=== PATIENT | female | born 1990 | race Asian ===

== ENCOUNTER 2018-01-30 13:29 | Emergency (ER) | payer OTHER ==
[2018-01-30 13:40] VITALS: TEMP 98.3; BMI 16.4
--- NOTE | 2018-01-30 13:56 | PDOC ---
History of Present Illness - History of Present Illness Initial Comments: 01/30/18 13:55 Denies F/C, N/V, CP, SOB, abdominal pain, diarrhea, constipation, urinary complaints, weakness, lightheadedness, sensory changes. PMHx: as noted above ROS: as noted above SHx: <Zenon Brannon - Last Filed: 01/30/18 13:54> <Sirisha Macedo - Last Filed: 01/30/18 15:38> - General Chief Complaint: Pain Stated Complaint: PAIN Time Seen by Provider: 01/30/18 13:49 Past History - Past Medical History COPD: No - Suicide/Smoking/Psychosocial Hx Smoking History: Never smoked <Zenon Brannon - Last Filed: 01/30/18 13:54> <Sirisha Macedo - Last Filed: 01/30/18 15:38> - Past Medical History Allergies/Adverse Reactions: Allergies Allergy/AdvReac Type Severity Reaction Status Date / Time No Known Allergies Allergy Verified 01/30/18 13:40 Review of Systems - Review of Systems Comments:: 01/30/18 13:55 GENERAL/CONSTITUTIONAL: No fever or chills. No weakness. HEAD, EYES, EARS, NOSE AND THROAT: No change in vision. No ear pain or discharge. No sore throat. CARDIOVASCULAR: No chest pain or shortness of breath RESPIRATORY: No cough, wheezing, or hemoptysis. GASTROINTESTINAL: No nausea, vomiting, diarrhea or constipation. GENITOURINARY: No dysuria, frequency, or change in urination. MUSCULOSKELETAL: No joint or muscle swelling or pain. No neck or back pain. SKIN: No rash NEUROLOGIC: No headache, vertigo, loss of consciousness, or change in strength/ sensation. ENDOCRINE: No increased thirst. No abnormal weight change HEMATOLOGIC/LYMPHATIC: No anemia, easy bleeding, or history of blood clots. ALLERGIC/IMMUNOLOGIC: No hives or skin allergy. <Zenon Brannon - Last Filed: 01/30/18 13:54> *Physical Exam - Vital Signs Last Vital Signs Temp Pulse Resp BP Pulse Ox 98.3 F 99 H 18 122/75 99 01/30/18 13:37 01/30/18 13:37 01/30/18 13:37 01/30/18 13:37 01/30/18 13:37 - Physical Exam Comments: 01/30/18 13:55 GENERAL: Awake, alert, and fully oriented, in no acute distress HEAD: No signs of trauma, normocephalic, atraumatic EYES: PERRLA, EOMI, sclera anicteric, conjunctiva clear ENT: Auricles normal inspection, hearing grossly normal, nares patent, oropharynx clear without exudates. Moist mucosa NECK: Normal ROM, supple, no lymphadenopathy, JVD, or masses LUNGS: No distress, speaks full sentences, clear to auscultation bilaterally HEART: Regular rate and rhythm, normal S1 and S2, no murmurs, rubs or gallops, peripheral pulses normal and equal bilaterally. ABDOMEN: Soft, nontender, normoactive bowel sounds. No guarding, no rebound. No masses EXTREMITIES : Normal inspection, Normal range of motion, no edema. No clubbing or cyanosis. NEUROLOGICAL: Cranial nerves II through XII grossly intact. Normal speech, normal gait, no focal sensorimotor deficits SKIN: Warm, Dry, normal turgor, no rashes or lesions noted <Zenon Brannon - Last Filed: 01/30/18 13:54> - Vital Signs Last Vital Signs Temp Pulse Resp BP Pulse Ox 98.3 F 99 H 18 122/75 99 01/30/18 13:37 01/30/18 13:37 01/30/18 13:37 01/30/18 13:37 01/30/18 13:37 - Physical Exam General Appearance: Yes: Appropriately Dressed Respiratory/Chest: positive: Lungs Clear, Normal Breath Sounds Cardiovascular: positive: Regular Rhythm, Regular Rate, S1, S2 Female Pelvic Exam: positive: normal external exam, cervical os closed, other ( scant white thick discharge. . rectal nontender no blood. ) Gastrointestinal/Abdominal: positive: Normal Bowel Sounds, Tender (llq suprapubic ttp. no rebound no guarding. ), Flat Musculoskeletal: positive: Normal Inspection. negative: CVA Tenderness Extremity: positive: Normal Capillary Refill, Normal Inspection Integumentary: positive: Normal Color, Dry, Warm Neurologic: positive: Fully Oriented, Alert, Normal Mood/Affect <Sirisha Macedo - Last Filed: 01/30/18 15:38> ED Treatment Course - LABORATORY CBC & Chemistry Diagram: 01/30/18 15:21 01/30/18 15:21 - RADIOLOGY Radiology Studies Ordered: Category Date Time Status TRANSVAGINAL US PREG [US] Stat Ultrasound 01/30/18 14:27 Ordered <Sirisha Macedo - Last Filed: 01/30/18 15:38> Medical Decision Making - Medical Decision Making 01/30/18 14:56 27 yo F at 12 weeks by LMP 10/30/17 here with lower abd cramping. pt is visiting from out of town. one prior , and one miscarriage at 6 weeks. no vaginal bleeding. pain cramping. also c/o nausea, vomiting 2 days ago. unable to take po today due to nausea. on exam awake alert. abd soft mild suprupubic ttp. no rebound no guarding. differential: ab, pain or , dehydration. anemia, uti, ectopic. plan tvus, labs us ivf. Reassess. <Sirisha Macedo - Last Filed: 01/30/18 15:38> *DC/Admit/Observation/Transfer - Attestations Physician Attestion: 01/30/18 13:55 I attest to the information provided in this note. <Zenon Brannon - Last Filed: 01/30/18 13:54> <Sirisha Macedo - Last Filed: 01/30/18 15:38> - Referrals Referrals: Huy Russell MD [Staff Physician] - - Patient Instructions Additional Instructions: Please return to the emergency department with any new or worsening symptoms or concerns. Please follow up with your primary care physician within 72 hours.
[2018-01-30] MEDS ORDERED: SODIUM CHLORIDE 0.9% 1000 ML INFUS.BAG IV ONE (14:28)
[2018-01-30] MEDS ORDERED: METOCLOPRAMIDE HCL INJECTION 10 MG/2 ML VIAL IVPUSH ONE (15:00)
[2018-01-30] MEDS ORDERED: METOCLOPRAMIDE HCL INJECTION 10 MG/2 ML VIAL ONE (15:24)
[2018-01-30 15:29] LABS: BASO % 0.1 % (0-2.0); EOS % 0.8 % (0-4.5); HEMOGLOBIN 11.5 GM/dL (10.7-15.3); LYMPH % 17.1 % (8-40); MCH 28.8 pg (25.7-33.7); MCHC 34.8 g/dl (32.0-36.0); MEAN CELL VOLUME 82.7 fl (80-96); MEAN PLT VOLUME 8.9 fl (7.5-11.1); MONO % 5.9 % (3.8-10.2); NEUT % 76.1 % (42.8-82.8); PLATELET COUNT 255 K/MM3 (134-434); RBC 3.98 M/mm3 (3.60-5.2); RDW 14.7 % (11.6-15.6); WHITE BLOOD COUNT 9.9 K/mm3 (4.0-10.0)
--- NOTE | 2018-01-30 15:38 | PDOC ---
History of Present Illness - General History Source: Patient Exam Limitations: No Limitations - History of Present Illness Initial Comments: 01/30/18 15:39 The patient is a 27 year old female, A1, who is currently 12 weeks (Home test, but not medically verified), with no significant past medical history, who presents to the emergency department complaining of abdominal pain, nausea, vomiting and anal itching for the last couple of days. She describes her abdominal pain as cramping sensation, ranging from mild to moderate, without radiation or modifying factors. She denies any kind of vaginal bleeding but notes some mild discharge. She notes that she had a miscarriage in the past at 6 weeks old. She states that she was unable to eat this morning due to nausea. [employer] Crew Supervisor was used: Myra # [id number] The patient denies chest pain, shortness of breath, headache or dizziness. Denies fever, chills, diarrhea and constipation. Denies dysuria, frequency, urgency and hematuria. LMP: 10/30/2017 Allergies: None Past surgical history: None reported Social History: No alcohol, tobacco or drug use reported <David Nielson - Last Filed: 01/30/18 15:51> - General History Source: Patient Exam Limitations: No Limitations <Sirisha Macedo - Last Filed: 01/30/18 16:54> - General Chief Complaint: Pain Stated Complaint: PAIN Time Seen by Provider: 01/30/18 13:49 Past History <David Nielson - Last Filed: 01/30/18 15:51> - Past Medical History COPD: No - Reproductive History Is Patient Now?: Yes (#): 3 Para: 1 Cervical CA: No Dysfunctional Uterine Bleeding: No Ectopic : No Endometrial CA: No Polycystic Ovaries: No Therapeutic (s) & number: No Tubal Ligation: No Spontaneous : 1 - Suicide/Smoking/Psychosocial Hx Smoking History: Never smoked Information on smoking cessation initiated: No <Sirisha Macedo - Last Filed: 01/30/18 16:54> - Past Medical History Allergies/Adverse Reactions: Allergies Allergy/AdvReac Type Severity Reaction Status Date / Time No Known Allergies Allergy Verified 01/30/18 13:40 Home Medications: Ambulatory Orders Metoclopramide HCl [Reglan] 10 mg PO TIDCM PRN #20 tablet 01/30/18 Review of Systems - Review of Systems Able to Perform ROS?: Yes Comments:: 01/30/18 15:39 GENERAL/CONSTITUTIONAL: No fever or chills. No weakness. HEAD, EYES, EARS, NOSE AND THROAT: No change in vision. No ear pain or discharge. No sore throat. CARDIOVASCULAR: No chest pain or shortness of breath. RESPIRATORY: No cough, wheezing, or hemoptysis. GASTROINTESTINAL: (+) Abdominal pain. No nausea, vomiting, diarrhea or constipation. GENITOURINARY: No dysuria, frequency, or change in urination. MUSCULOSKELETAL: No joint or muscle swelling or pain. No neck or back pain. SKIN: No rash NEUROLOGIC: No headache, vertigo, loss of consciousness, or change in strength/ sensation. ENDOCRINE: No increased thirst. No abnormal weight change. HEMATOLOGIC/LYMPHATIC: No anemia, easy bleeding, or history of blood clots. ALLERGIC/IMMUNOLOGIC: No hives or skin allergy. <David Nielson - Last Filed: 01/30/18 15:51> *Physical Exam - Vital Signs Last Vital Signs Temp Pulse Resp BP Pulse Ox 98.3 F 99 H 18 122/75 99 01/30/18 13:37 01/30/18 13:37 01/30/18 13:37 01/30/18 13:37 01/30/18 13:37 - Physical Exam Comments: 01/30/18 15:39 GENERAL: Awake, alert, and fully oriented, in no acute distress HEAD: No signs of trauma EYES: PERRLA, EOMI, sclera anicteric, conjunctiva clear ENT: Auricles normal inspection, nares patent. Moist mucosa NECK: Normal ROM, supple, no JVD, or masses LUNGS: Breath sounds equal, clear to auscultation bilaterally. No wheezes, and no crackles HEART: Regular rate and rhythm, normal S1 and S2, no murmurs, rubs or gallops ABDOMEN: (+) Mild suprapubic and bilateral lower quadrant tenderness. Soft, normoactive bowel sounds. No guarding, no rebound. No masses EXTREMITIES: Normal range of motion, no edema. No clubbing or cyanosis. No cords, erythema, or tenderness NEUROLOGICAL: Alert and oriented x 3. Moves all extremities. Face is symmetric. SKIN: Warm, Dry, normal turgor, no rashes or lesions noted. PELVIC EXAM: (+) White discharge in vaginal vault. No CMT tenderness, No adnexal tenderness, Ox is closed. <David Nielson - Last Filed: 01/30/18 15:51> - Vital Signs Last Vital Signs Temp Pulse Resp BP Pulse Ox 98.3 F 99 H 18 122/75 99 01/30/18 13:37 01/30/18 13:37 01/30/18 13:37 01/30/18 13:37 01/30/18 13:37 <Sirisha Macedo - Last Filed: 01/30/18 16:54> ED Treatment Course - LABORATORY CBC & Chemistry Diagram: 01/30/18 15:21 01/30/18 15:21 - ADDITIONAL ORDERS Additional order review: 01/30/18 15:21 RBC 3.98 MCV 82.7 MCHC 34.8 RDW 14.7 MPV 8.9 Neutrophils % 76.1 Lymphocytes % 17.1 Monocytes % 5.9 Eosinophils % 0.8 Basophils % 0.1 - Medications Given in the ED: ED Medications Discontinued Medications Generic Name Dose Route Start Last Admin Trade Name Freq PRN Reason Stop Dose Admin Metoclopramide HCl 10 mg 01/30/18 15:00 01/30/18 15:25 Reglan Injection - IVPUSH 01/30/18 15:01 10 mg ONCE ONE Administration Sodium Chloride 1,000 ml 01/30/18 14:28 01/30/18 15:23 Normal Saline - IV 01/30/18 14:29 1,000 ml ONCE ONE Administration <David Nielson - Last Filed: 01/30/18 15:51> - LABORATORY CBC & Chemistry Diagram: 01/30/18 15:21 01/30/18 15:21 - ADDITIONAL ORDERS Additional order review: 01/30/18 15:21 RBC 3.98 MCV 82.7 MCHC 34.8 RDW 14.7 MPV 8.9 Neutrophils % 76.1 Lymphocytes % 17.1 Monocytes % 5.9 Eosinophils % 0.8 Basophils % 0.1 - RADIOLOGY Radiology Studies Ordered: Category Date Time Status TRANSVAGINAL US PREG [US] Stat Ultrasound 01/30/18 14:27 Ordered - Medications Given in the ED: ED Medications Discontinued Medications Generic Name Dose Route Start Last Admin Trade Name Freq PRN Reason Stop Dose Admin Metoclopramide HCl 10 mg 01/30/18 15:00 01/30/18 15:25 Reglan Injection - IVPUSH 01/30/18 15:01 10 mg ONCE ONE Administration Sodium Chloride 1,000 ml 01/30/18 14:28 01/30/18 15:23 Normal Saline - IV 01/30/18 14:29 1,000 ml ONCE ONE Administration <Sirisha Macedo - Last Filed: 01/30/18 16:54> Medical Decision Making - Medical Decision Making 01/30/18 15:38 27 yo F at 12 weeks by LMP 10/30/17 here with lower abd cramping. pt is visiting from out of town. one prior , and one miscarriage at 6 weeks. no vaginal bleeding. pain cramping. also c/o nausea, vomiting 2 days ago. unable to take po today due to nausea. on exam awake alert. abd soft mild suprupubic ttp. no rebound no guarding. differential: ab, pain or , dehydration. anemia, uti, ectopic. plan tvus, labs us ivf. Reassess. 01/30/18 16:50 pt w 12 week . labs unremarkable. given ob/ telecom billing analyst fu. <Sirisha Macedo - Last Filed: 01/30/18 16:54> *DC/Admit/Observation/Transfer - Attestations Scribe Attestion: 01/30/18 15:41 Documentation prepared by David Nielson, acting as medical driver for Sirisha Macedo MD <David Nielson - Last Filed: 01/30/18 15:51> - Discharge Dispostion Decision to Admit order: No <Sirisha Macedo - Last Filed: 01/30/18 16:54> Diagnosis at time of Disposition: - Discharge Dispostion Disposition: HOME Condition at time of disposition: Improved - Prescriptions Prescriptions: Metoclopramide HCl [Reglan] 10 mg PO TIDCM PRN #20 tablet PRN Reason: Nausea - Referrals Referrals: Huy Russell MD [Staff Physician] - - Patient Instructions Printed Discharge Instructions: Medications and , Hyperemesis Gravidarum Additional Instructions: Please return to the emergency department with any new or worsening symptoms or concerns. Please follow up with your primary care physician within 72 hours. Print Language: SINHALA - Post Discharge Activity
[2018-01-30 15:58] LABS: ANION GAP 6 (8-16); BILIRUBIN,TOTAL 0.2 mg/dL (0.2-1.0); BLOOD UREA NITROGEN 7 mg/dL (7-18); CALCIUM 8.2 mg/dL (8.5-10.1); CHLORIDE 106 mmol/L (98-107); CO2 25 mmol/L (21-32); CREATININE 0.5 mg/dL (0.55-1.02); GLUCOSE,RANDOM 79 mg/dL (74-106); POTASSIUM 4.1 mmol/L (3.5-5.1); SGOT/AST 21 U/L (15-37); SGPT/ALT 24 U/L (12-78); SODIUM 137 mmol/L (136-145); TOT PROT 6.2 g/dl (6.4-8.2)
[2018-01-30 16:13] LABS: ALK PHOS 31 U/L (45-117)
[2018-01-30 17:30] VITALS: BP 103/59; PULSE 87
== END 2018-01-30 17:52 | disposition home or self-care (01) ==
LOC: JER 13:29
PROC: 3E033GC Introduction of Other Therapeutic Substance into Peripheral Vein, Percutaneous Approach (ICD-10-PCS; principal; 2018-01-30)
DX: O26.891 Other specified pregnancy related conditions, first trimester (principal); O21.0 Mild hyperemesis gravidarum; Z3A.12 12 weeks gestation of pregnancy
CPT/HCPCS: 36415; 76815-TC; 80053; 84702; 85025; 86850; 86900; 86901; 99283-25; J7030